=== PATIENT | female | born 1970 | race Caucasian/White ===

== ENCOUNTER 2018-02-22 04:04 | Emergency (ER) | payer SELFPAY ==
[2018-02-22 04:11] VITALS: BP 126/80
[2018-02-22] MEDS ORDERED: KETOROLAC TROMETHAMINE INJ/PF 30 MG/1 ML SDV IM ONE (04:35)
[2018-02-22] MEDS ORDERED: HYDROCODONE/ACETAMINOPHEN 5-325 MG (6 TAB/ER DISP) PO PRN (04:35)
--- NOTE | 2018-02-22 04:41 | ER Document Report ---
ED General - General Chief Complaint: Back Pain Stated Complaint: BACK PAIN Time Seen by Provider: 02/22/18 04:29 Notes: Patient is a 39-year-old female presents with complaint of pain in her right lower back radiating into her right gluteal region in her posterior proximal right thigh. She said it started when she tried to lift and cook pickled meat a generator today around 3 PM. Pain is continued therefore she is come to the ER. No numbness or weakness into her leg. No loss of bowel control. No urinary retention. No previous history of back injuries or pain. She does not have a primary care physician. She is on no medications. TRAVEL OUTSIDE OF THE [place] IN LAST 30 DAYS: No - Related Data Allergies/Adverse Reactions: No Known Allergies Allergy (Verified 02/22/18 04:06) Past Medical History - Social History Smoking Status: Current Every Day Smoker Chew tobacco use (# tins/day): No Frequency of alcohol use: None Drug Abuse: None Family History: Reviewed & Not Pertinent Patient has suicidal ideation: No Patient has homicidal ideation: No Renal/ Medical History: Denies: Hx Peritoneal Dialysis Review of Systems - Review of Systems Notes: My Normal Review Basic REVIEW OF SYSTEMS: CONSTITUTIONAL : Denies fever, chills, or sweats. Denies recent illness. GASTROINTESTINAL: No loss of bowel control. GENITOURINARY: No urinary retention MUSCULOSKELETAL: Right-sided low back pain SKIN: Denies rash or skin lesions. NEUROLOGICAL: Denies sensory or motor loss. ALL OTHER SYSTEMS REVIEWED AND NEGATIVE. Physical Exam - Vital signs Vitals: Temp Pulse Resp BP Pulse Ox 99.2 F 83 20 126/80 H 96 02/22/18 04:10 02/22/18 04:10 02/22/18 04:10 02/22/18 04:10 02/22/18 04:10 - Notes Notes: General Appearance: Well nourished, alert, cooperative, no acute distress, moderate obvious discomfort. Vitals: reviewed, See vital signs table. Eyes: PERRL, EOMI, Conjuctiva clear Extremities: Patient is good strength with plantar dorsiflexion against resistance of her right lower extremity and left lower extremity. Patellar reflex and Achilles reflex on right lower extremity is 2 out of 4. Good distal sensation in both feet. Patient has pain to palpation in the right gluteal region. Back: Pain palpation over the right lumbar paraspinal musculature and into the right gluteal region. No midline tenderness. Skin: warm, dry, appropriate color, no rash Neuro: speech clear, oriented x 3, normal affect, responds appropriately to questions. Distal sensation intact. Course - Re-evaluation Re-evalutation: 02/22/18 04:48 Patient has what appears to be lumbar strain with sciatica. I talked her length about the possibility of pinched nerve causing pain that radiates into her gluteal region posterior thigh. I informed her that she still needs to get up and walk around but she should not be over exerting herself or picking up anything heavy. Gave her a shot of Toradol and encourage her take ibuprofen at home I gave her a few [place] tablets to go home with to help for the first 1-2 days with the pain. Informed her she needs follow-up with primary care doctor for reevaluation and if her pain continues she may eventually need a referral to physical therapy. Currently patient has no symptoms or symptoms of central cord impingement. She has no weakness or numbness into her legs. She does not have any loss of bowel control or urinary retention. Patient encouraged to return to ER if she develops any of those above-mentioned symptoms. Patient agrees with plan will be discharged home. Dictation of this chart was performed using voice recognition software; therefore, there may be some unintended grammatical errors. - Vital Signs Vital signs: Temp Pulse Resp BP Pulse Ox 99.2 F 83 20 126/80 H 96 02/22/18 04:10 02/22/18 04:10 02/22/18 04:10 02/22/18 04:10 02/22/18 04:10 Discharge - Discharge Clinical Impression: Back pain Qualifiers: Back pain location: low back pain Chronicity: unspecified Back pain laterality : right Sciatica presence: with sciatica Sciatica laterality: sciatica of right side Qualified Code(s): M54.41 - Lumbago with sciatica, right side Condition: Good Disposition: HOME, SELF-CARE Additional Instructions: LOW BACK PAIN: Three out of every four people will have an episode of disabling back pain during their lifetime. Most commonly the pain is due to straining of the muscles and ligaments in the low back. Usual treatment includes: (1) Rest on a firm surface. Avoid lying on your stomach. (2) Ice pack the painful area. After a few days, gentle heat may be used intermittently to relax the area, or ice packs can be continued. (3) Medication may be needed -- muscle relaxers and antiinflammatory medicines are commonly used. (4) As the back improves, exercises are prescribed to strengthen the back and abdominal muscles. Your doctor will advise you on the proper care for your back at each stage in your recovery. You may be better in a few days -- or healing may take several weeks. If new symptoms of a "herniated disc" (radiation of pain, numbness, or tingling down the back of the leg or weakness in the leg) occur, you should be re-examined. Further testing may be necessary. ORAL NARCOTIC MEDICATION: You have been given a prescription for pain control. This medication is a narcotic. It's best taken with food, as nausea can result if taken on an empty stomach. Don't operate machinery or drive within six hours of taking this medication. Do not combine this medicine with alcohol, or with any medication which can cause sedation (such as cold tablets or sleeping pills) unless you get permission from the physician. Narcotics tend to cause constipation. If possible, drink plenty of fluids and eat a diet high in fiber and fruits. Please be aware that prescription narcotics also have the potential for abuse. People become addicted to these medications because of the general sense of wellbeing that they induce. This feeling along with a significant reduction in tension, anxiety, and aggression provides a stimulating seductive quality to these drugs. Once your pain is under control, we encourage you to discard your unused narcotics. MUSCLE RELAXERS: Muscle relaxing medications are usually prescribed for acute muscle spasm or injury to the neck and back. They are often combined with antiinflammatory pain medication for increased relief. You may stop the muscle relaxer when the pain and stiffness have improved. Start the medication again if spasms recur. Muscle relaxers may cause drowsiness, especially with the first dose. Do not operate machinery or drive while under the effects of the medication. Most muscle relaxers last up to 24 hours. Do not combine the medication with alcohol. ICE PACKS: Apply ice packs frequently against the painful area. Many different schedules are recommended, such as "20 minutes on, 20 minutes off" or "one hour ice, two hours rest." If you need to work, you may need to go longer between ice treatments. You should plan to have the area ice packed AT LEAST one fourth of the time. The ice should be applied over the wrap, tape, or splint, or over a layer of cloth -- not directly against the skin. Some ice bags have a built-in cloth and can be put directly on the skin. WARM PACKS: After approximately two days, apply gentle heat (such as a heating pad or hot water bottle) for about 20 to 30 minutes about every two hours -- at least four times daily. Warmth and elevation will help you make a more rapid recovery , and will ease the pain considerably. Do not use HOT heat, and never apply heat for longer than 30 minutes. The continuous heat can invisibly damage skin and muscles -- even when no burn is seen on the surface. Damaged muscles can make you MORE sore. FOLLOW-UP CARE: If you have been referred to a physician for follow-up care, call the physician s office for an appointment as you were instructed or within the next two days. If you experience worsening or a significant change in your symptoms, notify the physician immediately or return to the Emergency Department at any time for re-evaluation. Please follow up with a primary care doctor early next week for reevaluation. If you continue to have pain you may need a referral to physical therapy. Please return to the ER immediately if you have worsening pain, leg weakness or numbness, fevers, loss of bowel control or inability to urinate. Please be aware that [place] does have Tylenol (acetaminophen) in it. Please make sure you do not take more than 4000 mg of acetaminophen a day. Do not drive or care for children after you have taken this medication they will make you sleepy and sometimes impair judgment. Please take ibuprofen 600 mg every 6 hours with food. No heavy lifting. Do not overexert yourself. Please still try to get up and walk around so that you do not become stiff. Prescriptions: Metaxalone [Skelaxin 800 mg Tablet] 800 mg PO ASDIR PRN #20 tablet PRN Reason: Forms: Return to Work
== END 2018-02-22 04:45 | disposition home or self-care (01) ==
LOC: ER 04:04
DX: M54.41 Lumbago with sciatica, right side (principal); F17.200 Nicotine dependence, unspecified, uncomplicated
CPT/HCPCS: 99283; 96372; J1885

== ENCOUNTER 2018-06-11 15:37 | Emergency (ER) | payer SELFPAY ==
[2018-06-11] MEDS ORDERED: KETOROLAC TROMETHAMINE 60 MG/2 ML SDV IM ONE (17:44)
[2018-06-11] MEDS ORDERED: LIDOCAINE 5% (700 MG) TRANSDERMAL ADH..PATCH TP ONE (17:44)
[2018-06-11] MEDS ORDERED: METHOCARBAMOL 750 MG TABLET PO ONE (17:44)
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
[2018-06-11 18:55] VITALS: BP 140/85
[2018-06-11] MEDS ORDERED: OXYCODONE-ACETAMINOPHEN 5-325 MG TABLET PO ONE (18:58)
== END 2018-06-11 19:08 | disposition home or self-care (01) ==
LOC: ER 15:37
DX: M54.41 Lumbago with sciatica, right side (principal); M79.604 Pain in right leg; R22.0 Localized swelling, mass and lump, head; Y09 Assault by unspecified means; F17.200 Nicotine dependence, unspecified, uncomplicated
CPT/HCPCS: 99283; 96372; 70486; J1885; J3490

== ENCOUNTER 2018-07-27 17:08 | Emergency (ER) | payer SELFPAY ==
[2018-07-27] MEDS ORDERED: IPRATROPIUM/ALBUTEROL 0.5-2.5 MG/3 ML AMPUL NEB ONE (17:53)
[2018-07-27] MEDS ORDERED: PSEUDOEPHEDRINE HCL 30 MG TABLET PO ONE (17:53)
[2018-07-27] MEDS ORDERED: IBUPROFEN 800 MG TABLET PO ONE (17:53)
--- NOTE | 2018-07-27 18:16 | ER Document Report ---
HPI - HPI Patient complains to provider of: Sore throat, cough Time Seen by Provider: 07/27/18 17:37 Onset/Duration: Persistent Quality of pain: Achy Pain Level: 2 Context: The patient presents with a 3-day history of left ear pain, sore throat, cough and congestion. Patient reports cough has been productive. Patient denies any fever. Associated Symptoms: Productive cough, Earache, Rhinnorhea, Sore throat. denies: Chest pain, Fever, Nausea Exacerbated by: Denies Relieved by: Denies Similar symptoms previously: Yes Recently seen / treated by doctor: No - ROS ROS below otherwise negative: Yes Systems Reviewed and Negative: Yes All other systems reviewed and negative - CONSTITUTIONAL Constitutional: DENIES: Fever - EENT EENT: REPORTS: Sore Throat, Ear Pain, Nasal Drainage-Clear - CARDIOVASCULAR Cardiovascular: DENIES: Chest pain - RESPIRATORY Respiratory: REPORTS: Coughing. DENIES: Trouble Breathing - GASTROINTESTINAL Gastrointestinal: DENIES: Nausea, Patient vomiting - REPRODUCTIVE Reproductive: DENIES: : - MUSCULOSKELETAL Musculoskeletal: DENIES: Back Pain - DERM Skin Color: Normal Skin Problems: None Past Medical History - General Information source: Patient - Social History Smoking Status: Current Every Day Smoker Chew tobacco use (# tins/day): No Frequency of alcohol use: None Drug Abuse: None Occupation: None Family History: Reviewed & Not Pertinent Patient has suicidal ideation: No Patient has homicidal ideation: No Renal/ Medical History: Denies: Hx Peritoneal Dialysis Psychiatric Medical History: Reports: Hx Depression Past Surgical History: Reports: Hx Hysterectomy, Hx Orthopedic Surgery - R arm, Hx Tubal Ligation Vertical Provider Document - CONSTITUTIONAL Agree With Documented VS: Yes Exam Limitations: No Limitations General Appearance: WD/WN, No Apparent Distress - INFECTION CONTROL TRAVEL OUTSIDE OF THE [place] IN LAST 30 DAYS: No - HEENT HEENT: Atraumatic, Normocephalic, Pharyngeal Tenderness. negative: Pharyngeal Exudate, Pharyngeal Erythema, Tympanic Membrane Red, Tympanic Membrane Bulging Notes: clear rhinorrhea - NECK Neck: Normal Inspection, Supple. negative: Lymphadenopathy-Left, Lymphadenopathy-Right - RESPIRATORY Respiratory: No Respiratory Distress, Chest Non-Tender, Wheezing - with cough - CARDIOVASCULAR Cardiovascular: Regular Rate, Regular Rhythm, No Murmur - BACK Back: Normal Inspection - MUSCULOSKELETAL/EXTREMETIES Musculoskeletal/Extremeties: MAEW, FROM - NEURO Level of Consciousness: Awake, Alert, Appropriate Motor/Sensory: No Motor Deficit - DERM Integumentary: Warm, Dry, No Rash Course - Re-evaluation Re-evalutation: 07/27/18 18:43 Patient's respirations even unlabored, patient nontoxic in appearance. No concern for pneumonia or pneumothorax at this time. No concern for PE. Good return precautions discussed. - Vital Signs Vital signs: Temp Pulse Resp BP Pulse Ox 99.0 F 88 20 126/79 H 100 07/27/18 17:19 07/27/18 17:19 07/27/18 17:19 07/27/18 17:19 07/27/18 17:19 - Laboratory Laboratory results interpreted by me: 07/27/18 18:43 Labs- Entire Visit 07/27/18 07/27/18 17:52 18:04 Influenza A (Rapid) NEGATIVE Influenza B (Rapid) NEGATIVE Group A Strep Rapid NEGATIVE - Diagnostic Test Radiology reviewed: Reports reviewed Discharge - Discharge Clinical Impression: Sore throat Upper respiratory infection Qualifiers: URI type: unspecified URI Qualified Code(s): J06.9 - Acute upper respiratory infection, unspecified Condition: Stable Disposition: HOME, SELF-CARE Instructions: Acetaminophen, Sore Throat ([facility]), Upper Respiratory Illness ([facility]) Additional Instructions: Return immediately for any new or worsening symptoms Followup with your primary care provider, call tomorrow to make a followup appointment Take Sudafed and Mucinex [id number] to help with congestion symptoms Prescriptions: Benzonatate [Tessalon Perle 100 mg Capsule] 100 mg PO Q8HP PRN #20 cap PRN Reason: Albuterol Sulfate [Proair Hfa Inhalation Aerosol 8.5 gm Mdi] 2 puff IH Q4 PRN #1 mdi PRN Reason: Prednisone [Deltasone 10 mg Tablet] 10 mg PO ASDIR PRN #21 tablet PRN Reason: Forms: Smoking Cessation Education Referrals: [facility] [Provider Group] - Follow up as needed
[2018-07-27 18:33] LABS: A TYPE INFLUENZA AG NEGATIVE (NEGATIVE); B INFLUENZA AG NEGATIVE (NEGATIVE)
--- NOTE | 2018-07-27 18:37 | RADIOLOGY REPORT (SQ) ---
EXAM DESCRIPTION: CHEST 2 VIEWS COMPLETED DATE/TIME: 07/27/2018 6:18 pm REASON FOR STUDY: cough COMPARISON: None. EXAM PARAMETERS: NUMBER OF VIEWS: two views TECHNIQUE: Digital Frontal and Lateral radiographic views of the chest acquired. RADIATION DOSE: NA LIMITATIONS: none FINDINGS: LUNGS AND PLEURA: No opacities, masses or pneumothorax. No pleural effusion. MEDIASTINUM AND HILAR STRUCTURES: No masses or contour abnormalities. HEART AND VASCULAR STRUCTURES: Heart normal size. No evidence for failure. BONES: No acute findings. HARDWARE: None in the chest. OTHER: No other significant finding. IMPRESSION: NO ACUTE RADIOGRAPHIC FINDING IN THE CHEST. TECHNICAL DOCUMENTATION: JOB ID: [id number] [place]-72 2010 [employer]- All Rights Reserved Reading location - IP/workstation name: [email or web address]
[2018-07-27 19:01] VITALS: BP 128/77
== END 2018-07-27 19:01 | disposition home or self-care (01) ==
LOC: ER 17:08
DX: J06.9 Acute upper respiratory infection, unspecified (principal); J02.9 Acute pharyngitis, unspecified; R05 Cough; H92.02 Otalgia, left ear; R09.81 Nasal congestion; F17.200 Nicotine dependence, unspecified, uncomplicated
CPT/HCPCS: 94640; 99284; 87070; 87880; 87804; 71046; J7620

== ENCOUNTER 2018-08-27 00:50 | Emergency (ER) | payer SELFPAY ==
[2018-08-27 01:02] VITALS: BP 132/97
--- NOTE | 2018-08-27 02:31 | ER Document Report ---
ED ENT - General Chief Complaint: Ear Pain Stated Complaint: EAR PAIN Time Seen by Provider: 08/27/18 02:24 Mode of Arrival: Ambulatory Information source: Patient TRAVEL OUTSIDE OF THE [place] IN LAST 30 DAYS: No - HPI Patient complains to provider of: Ear problem Notes: Patient here with complaints of left ear pain. She states she was here about a month ago and was told she had fluid behind her ear has been using Flonase, Mucinex and Claritin, but states that she is now having increasing pain in the left ear as well as a mild headache. No fevers. No nausea, vomiting, diarrhea. No drainage. No chest pain or shortness of breath. No rash. No injury. No blurred or loss vision. No numbness, tingling, weakness. Pain is constant, moderate, nothing makes it better or worse. She denies any other specific complaints at this time. - Related Data Allergies/Adverse Reactions: No Known Allergies Allergy (Verified 07/27/18 17:12) Past Medical History - Social History Smoking Status: Current Every Day Smoker Chew tobacco use (# tins/day): No Frequency of alcohol use: None Family History: Reviewed & Not Pertinent Patient has suicidal ideation: No Patient has homicidal ideation: No Neurological Medical History: Reports: Hx Migraine Renal/ Medical History: Denies: Hx Peritoneal Dialysis Psychiatric Medical History: Reports: Hx Depression Past Surgical History: Reports: Hx Hysterectomy, Hx Orthopedic Surgery - R arm, Hx Tubal Ligation Review of Systems - Review of Systems -: Yes All other systems reviewed and negative Physical Exam - Vital signs Vitals: Temp Pulse Resp BP Pulse Ox 97.5 F 81 24 H 132/97 H 96 08/27/18 01:01 08/27/18 01:01 08/27/18 01:01 08/27/18 01:01 08/27/18 01:01 - Notes Notes: GENERAL: alert, cooperative, nontoxic, no distress. HEAD: normocephalic, atraumatic EYES: conjunctiva pink without discharge, no external redness or swelling. EARS: no external swelling, no external redness, no mastoid redness, swelling, tenderness. Ear canals are clear without swelling or drainage. Left TM with fluid, mild bulging and mild erythema. No perforation. Right TM is normal. NOSE: atraumatic, no external swelling. clear rhinorrhea noted. MOUTH/THROAT: mucous membranes moist and pink, posterior pharynx without erythema, swelling, exudate. No trismus or drooling. NECK: soft, supple, full range of motion, no meningismus. CHEST: no distress, lungs clear and equal throughout. No wheezing, rales, rhonchi. CARDIAC: regular rate and rhythm, no murmur, normal capillary refill, normal pulses. No peripheral edema noted. BACK: full range of motion, no CVA tenderness. EXTREMITIES: full range of motion of all extremities. No redness, no swelling. NEURO: alert and oriented A&O3, no focal deficits, full range of motion of all extremities. PYSCH: appropriate mood, affect. Patient is cooperative. SKIN: pink, warm, dry, no rash. Course - Re-evaluation Re-evalutation: 08/27/18 02:29 Patient is nontoxic-appearing with stable vitals. Patient here with complaints of left ear pain. She has had pain in the left ear for about a month, is gotten worse over the last few days. She was seen about a month ago and told she had a effusion behind her ear she been taking antihistamines as well as Mucinex and Flonase without relief. On exam she has a mild otitis media. No signs of mastoiditis or otitis externa. She will be placed on amoxicillin and Naprosyn. She will be given a referral to primary care. She instructed to follow-up if not better in the next 3-5 days, sooner for worsening pain, fever, redness, drainage, swelling, any further concerns. The patient's emergency department workup and current diagnosis were explained to the patient and or family. Follow-up instructions were provided. Medications if prescribed were discussed. Instructions for when to return to the emergency department including specific worrisome symptoms were discussed with the patient and/or family. - Vital Signs Vital signs: Temp Pulse Resp BP Pulse Ox 97.5 F 81 24 H 132/97 H 96 08/27/18 01:01 08/27/18 01:01 08/27/18 01:01 08/27/18 01:01 08/27/18 01:01 Discharge - Discharge Clinical Impression: Left otitis media Qualifiers: Otitis media type: unspecified Qualified Code(s): H66.92 - Otitis media, unspecified, left ear Condition: Stable Disposition: HOME, SELF-CARE Instructions: Otitis Media ([facility]) Additional Instructions: Take medications as prescribed. Drink plenty of fluids. Take Tylenol as needed for pain. Follow-up if not better in 3-5 days, sooner for worsening pain, fever, numbness, [place], weakness, redness, swelling, any further concerns. Prescriptions: Amoxicillin Trihydrate [Amoxil 500 mg Capsule] 500 mg PO TID #30 cap Naproxen [Naprosyn] 500 mg PO BID #20 tablet Forms: Smoking Cessation Education Referrals: [facility] [Provider Group] - Follow up as needed
[2018-08-27] MEDS ORDERED: IBUPROFEN 600 MG TABLET PO ONE (02:32)
[2018-08-27] MEDS ORDERED: AMOXICILLIN TRIHYDRATE 500 MG CAPSULE PO ONE (02:33)
== END 2018-08-27 02:53 | disposition home or self-care (01) ==
LOC: ER 00:50
DX: H65.92 Unspecified nonsuppurative otitis media, left ear (principal); H92.02 Otalgia, left ear; R51 Headache; Z79.899 Other long term (current) drug therapy; F17.200 Nicotine dependence, unspecified, uncomplicated
CPT/HCPCS: 99282

== ENCOUNTER 2018-09-06 17:19 | Emergency (ER) | payer SELFPAY ==
[2018-09-06 18:02] VITALS: BP 127/73
--- NOTE | 2018-09-06 19:01 | ER Document Report ---
HPI - HPI Time Seen by Provider: 09/06/18 18:56 Pain Level: 5 Notes: Patient is a 47-year-old female who presents emergency department complaining of left ear pain that has been intermittent, but ongoing for the past month. Patient states that the pain will be sharp on occasion and radiate down towards her neck and her jaw. Patient states that she has been on allergy medicine as well as a trial of antibiotics at her visit 10 days ago. She is otherwise eating and drinking without difficulty. She does have some nasal congestion on the left side. Denies drug allergies. No other concerns or complaints. She has not been seen by any specialist for this issue due to insurance complications. Denies any headache, fever, head injury, neck pain, changes in vision/speech/mentation/hearing, tinnitus, dizziness, sore throat, chest pain, palpitations, syncope, cough, shortness of breath, wheeze, dyspnea, abdominal pain, nausea/vomiting/diarrhea, urinary retention, dysuria, hematuria, or rash. - ROS Systems Reviewed and Negative: Yes All other systems reviewed and negative - REPRODUCTIVE Reproductive: DENIES: : Past Medical History - Social History Smoking Status: Unknown if Ever Smoked Family History: Reviewed & Not Pertinent Neurological Medical History: Reports: Hx Migraine Renal/ Medical History: Denies: Hx Peritoneal Dialysis Psychiatric Medical History: Reports: Hx Depression Past Surgical History: Reports: Hx Hysterectomy, Hx Orthopedic Surgery - R arm, Hx Tubal Ligation Vertical Provider Document - CONSTITUTIONAL Agree With Documented VS: Yes Notes: PHYSICAL EXAMINATION: GENERAL: Well-appearing, well-nourished and in no acute distress. A&Ox4. Answers questions appropriately. Moves comfortably w/o notable distress HEAD: Atraumatic, normocephalic. EYES: Pupils equal round and reactive to light, extraocular movements intact, sclera anicteric, conjunctiva are normal. ENT: EAC clear b/l. TM's intact b/l without erythema, fluid, or perforation. Lt is dull when compared to the right. Nares patent and without. oropharynx no erythema without exudates. No tonsilar hypertrophy without erythema or exudate. No palatine shift. Uvula midline. No tongue protrusion. No drooling, hoarseness, or airway compromise. Moist mucous membranes. No sinus tenderness. NECK: Normal range of motion, supple without lymphadenopathy. No rigidity/meningismus. LUNGS: Breath sounds clear to auscultation bilaterally and equal. No wheezes rales or rhonchi. No retractions HEART: Regular rate and rhythm without murmurs, rubs, gallops. NEUROLOGICAL: Normal speech, normal gait. Cranial nerves grossly intact. PSYCH: Normal mood, normal affect. SKIN: Warm, Dry, normal turgor, no rashes or lesions noted. - INFECTION CONTROL TRAVEL OUTSIDE OF THE [place] IN LAST 30 DAYS: No Course - Re-evaluation Re-evalutation: 09/06/18 18:59 Patient is an afebrile, well-hydrated, 47-year-old female who presents the emergency department with left otalgia, suspect eustachian tube dysfunction. Vitals are acceptable without significant tachycardia, tachypnea, or hypoxia. PE is otherwise unremarkable. There is no evidence of infection at this time. She is nontoxic-appearing and is tolerating p.o. without difficulty. Low suspicion for any sepsis, meningitis, severe dehydration, respiratory compromise, mastoiditis, or other systemic emergent condition at this time. P atient is aware that condition can change from initial presentation and she needs to monitor symptoms closely and seek medical attention with any acute changes. Reviewed conservative measures with the patient to aid with eustachian tube pain/dysfunction. Recheck with PCM in 3-5 days. Schedule an appointment with ENT. Return to the ED with any other worsening/concerning symptoms. Patient is in agreement. - Vital Signs Vital signs: Temp Pulse Resp BP Pulse Ox 97.4 F 84 18 127/73 H 99 09/06/18 17:59 09/06/18 17:59 09/06/18 17:59 09/06/18 17:59 09/06/18 17:59 Discharge - Discharge Clinical Impression: Otalgia, left ear Condition: Stable Disposition: HOME, SELF-CARE Additional Instructions: Maintain adequate fluid intake Take meds as directed tylenol/ibuprofen as needed Avoid Q-tips in the ears over the counter cold medication as needed for symptoms (afrin nose spray for no more than 5 days, mucinex with pseudafed, nasal saline rinses, etc). F/u: with your PCM in 3-5 days for a recheck Schedule a consult with ENT Return to the ED with any fever, dizziness, tinnitus, headaches, worsening pain, chest pain, palpitations, syncope, neck pain/stiffness, shortness of breath, wheezing, drooling, trouble swallowing/breathing, abdominal pain, n/v/d, rash, or worsening/concerning symptoms otherwise. Forms: Elevated Blood Pressure Referrals: NNAMDI DAILEY DO [ASSOCIATE] - Follow up as needed
== END 2018-09-06 19:22 | disposition home or self-care (01) ==
LOC: ER 17:19
DX: H92.02 Otalgia, left ear (principal); M54.2 Cervicalgia; R68.84 Jaw pain; R09.81 Nasal congestion
CPT/HCPCS: 99282